=== PATIENT | female | born 2000 | race Caucasian/White ===

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

== ENCOUNTER 2021-02-06 20:59 | Emergency (ER) | payer OTHER, MEDICAID, SELFPAY ==
[2021-02-06 21:08] VITALS: BP 115/79; PULSE 88; RESP 16; TEMP 36.7; O2SAT 100
--- NOTE | 2021-02-06 21:15 | DI.CT_ITS ---
Exam(s) CT ABDOMEN PELVIS W EXAM: CT ABDOMEN PELVIS W CLINICAL HISTORY: right sided abodmen pain. TECHNIQUE: Imaging Protocol: Axial computed tomography images with coronal and sagittal reformatted images were created and reviewed CONTRAST MATERIAL: Intravenous: Omnipaque 350 Contrast volume:100 ml Oral: yes / no COMPARISON: No exams were available for comparison FINDINGS: ABDOMEN: Lung Bases: Normal where visualized. Liver: Normal density. No measurable mass. Gallbladder and biliary tract: No radiodense calculus or dilation. Pancreas: Normal density, no abnormal calcifications or inflammatory process. Spleen: Normal. Kidneys: Right kidney: Mild right hydronephrosis and enhancement of the urothelium. Patchy areas of decreased perfusion in the mid right kidney may represent foci of pyelonephritis. No perinephric col lection. No stones. Left kidney: Normal size, contour and axis. No radiodense stones or obstructive uropathy. No masses s een. Adrenal glands: No masses seen. Abdominal Aorta: Abdominal portion non-dilated. PELVIS: Bladder: No gross wall thickening. No calculi.No focal mass. Bowel: No obstruction or bowel wall thickening. Appendix normal. Peritoneal cavity: No ascites, collection or mesenteric inflammatory response. Bones: Within normal limits for age. Reproductive organs: Within normal limits. IUD. Lymph nodes: Unremarkable. Impression: Mild right hydronephrosis and urothelial enhancement. Patchy areas of decreased perfusion suspicious for pyelonephritis. RADIATION DOSE DELIVERED: 639.19mGy.cm Total DLP DATA REPOSITORY: All CT scans at this facility are submitted to the National Radiology Data Registry (NRDR) Dose Index Registry (DIR) with the [employer] (A[employer]). RADIATION OPTIMIZATION: All CT scans at this facility use at least one of these dose optimization te chniques: automated exposure control; mA and/or kV adjustment per patient size (includes targeted exa ms where dose is matched to clinical indication); or iterative reconstruction.
--- NOTE | 2021-02-06 21:25 | ED.GENADUL_ITS ---
Discharge Plan Disposition Patient Disposition: HOME Condition: Stable Discharge Details Clinical Impression: Abdominal pain, Pyelonephritis Primary Care Provider: Aram Matute ED Provider: Rodney Solorzano Home Meds and New Rx's Prescriptions: New cephalexin 500 mg tablet 500 mg PO QID Qty: 40 RF: 0 Continued Kyleena 17.5 mcg/24 hrs (5 yrs) 19.5 mg intrauterine device 1 device intrauterine ONCE RF: 0 escitalopram oxalate [Lexapro] 10 mg tablet 10 mg PO DAILY RF: 0 Discontinued fluconazole [Diflucan] 150 mg tablet 150 mg PO ONCE Qty: 2 RF: 0 amoxicillin-pot clavulanate [Augmentin] 875-125 mg tablet 1 tab PO Q12H Qty: 14 RF: 0 Discharge Instructions Instructions: Kidney Infection (ED) Additional Instructions: your cat scan showed a kidney infection otherwise no other emergent findings you can take 1000mg tylenol and 600mg ibuprofen every 6 hours for pain as needed follow up with your primary care provider within a week return to the emergency department if you feel more ill, have persistent vomit or severe uncontrolled pain Medical Decision Making 20 yo female who denies chronic medical problems comes in with chief complaint of 4 days of right sided oblique and upper abdomen pain that is new for her. She denies vomit but has had nausea. Denies fevers, chills. She has tenderness on exam with palpation to the right upper abdomen and also right oblique area, no left sided tenderness or lower abdomen tenderness. Given location of pain concern for pancreatitis vs cholecystitis less likely appendicitis given pain seems more in the upper abdomen. Will obtain ct as there is no u/s available now and also obtain labs including cmp and lipase. labs remarkable for likely uti otherwise unremarkable and ct confirms likely uti/pyelo. She remains stable. No drew's sign and no right lower abdomen pain. She is hemodynamically stable for outpatient management. 1gm IV ceftriaxone given and will continue oral cephalexin. Advised to f/u with pcp and return precautions given Differential Diagnosis Differential Diagnosis: cholecystitis, hepatitis, appendicitis Imaging Data Radiologic Study: Attestation: I personally reviewed and interpreted this imaging study as follows: Imaging: CT Scan Radiologist's impression: IMPRESSION: 1. Asymmetrically prominent visualization of the urothelium in the right renal pelvis and proximal ureter. Although nonspecific, an acute urinary tract infection could produce this appearance. Clinical correlation is recommended. Two small foci of diminished/absent cortical enhancement in the right kidney. Early or mild acute pyelonephritis is suspected. Mimicking hypoattenuating cortical lesions are not excluded. 2. Normal appendix. 3. Small amount of free fluid in the deep pelvis, nonspecific. Lab Data Lab results reviewed: Yes I reviewed the patient's lab results. HPI General Mode of arrival: ambulatory . Date/Time Provider Initiated Documentation: 02/06/21 21:03 . Limitations to Documentation: no limitations . Information obtained by: patient . History of Present Illness 20 year old F presents to the emergency department with the chief complaint of abdomen pain, described as moderate and severe, Quality is described as aching and sharp, Patient started experiencing this day(s) (4) and it has been constant. other things that improve symptom(s), (nsaids) No exacerbating factors reported . Patient notes other (nausea). Patient did receive the following treatments prior to arrival, NSAID (5 hours ago) Related Data Home Medications Medication Instructions Recorded Confirmed levonorgestrel 1 device INTRAUTERINE ONCE 05/31/20 05/31/20 escitalopram oxalate 10 mg tablet 10 mg PO DAILY 12/01/20 cephalexin 500 mg PO QID #40 tab 02/06/21 Previous Rx's Medication Instructions Recorded cephalexin 500 mg PO QID #40 tab 02/06/21 Allergies Allergy/AdvReac Type Severity Reaction Status Date / Time No Known Allergies Allergy Verified 02/06/21 21:11 General Stated Complaint: Abd Prob LELE: 3 Review of Systems All systems reviewed & are unremarkable except as noted in HPI and below Constitutional Constitutional: Denies chills, Denies fever(s) and Denies weakness Cardiovascular Cardiovascular: Denies chest pain and Denies dyspnea Respiratory Respiratory: Denies cough and Denies dyspnea Gastrointestinal Gastrointestinal: Denies vomiting Neurologic Neurologic: Denies weakness [facility] Medical History (Updated 02/06/21 @ 23:38 by Rodney Solorzano MD) Anxiety IUD surveillance (04/19/20) [facility] Social History (Updated 04/19/20 @ 12:49 by Alba Solorzano NP) Smoking/Tobacco Use Status: Never Smoking risk assessment performed?: Yes Alcohol Intake: never Drug use: Occasionally Substance use type: marijuana Sexually active: Yes Do you think of yourself as: straight/heterosexual Current gender identity: female Do you feel safe at home: Yes Do you feel safe in your relationship?: Yes Female Reproductive History Menstrual Duration of menses: 3-5 days control method: progestin IUCD (Kyleena) History History 0 Para Hx # Term Pregnancies Multiple births Hx # Pregnancies Ectopic pregnancies AB induced Hx Number of Living Children AB spontaneous Exam Const General: no acute distress Orientation: alert HENMT Head: normal to inspection Ears: external ears normal General nose exam: external nose normal Mouth: moist mucous membranes Eyes General: appearance normal, both eyes and all related structures Neck Neck: normal visual inspection Resp Effort & Inspection: normal respiratory effort and able to speak in complete sentences Cardio Rate: regular rate GI Palpation: soft and tender Skin General skin exam: no rashes or lesions noted Neuro General: patient alert and patient oriented x3 Extrem General: normal to inspection Psych Mental Status: mental status grossly normal Course Vital Signs Vital signs: Vital Signs Temperature 36.7 C 02/06/21 21:08 Pulse 88 02/06/21 21:08 Respiratory Rate 16 02/06/21 21:08 Blood Pressure 115/79 02/06/21 21:08 Pulse Oximetry 100 02/06/21 21:08 Temperature 36.7 C 02/06/21 21:08 Temperature Source Temporal Artery Scan 02/06/21 21:08 Pulse 88 02/06/21 21:08 Respiratory Rate 16 02/06/21 21:08 Respiratory Effort Non-Labored 02/06/21 21:10 Blood Pressure 115/79 02/06/21 21:08 Blood Pressure Position Sitting 02/06/21 21:08 Pulse Oximetry 100 02/06/21 21:08 Oxygen Delivery Method Room Air 02/06/21 21:08 Oxygen Flow Rate 0 02/06/21 21:08 Pain Level 8 02/06/21 21:24
[2021-02-06 21:40] LABS: Abs Immature Grans 0.02 10^3/uL (0.0-0.06); Absolute Basophil Count 0.02 10^3/uL (0.0-0.2); Absolute Eosinophil Count 0.01 10^3/uL (0.0-0.7); Absolute Lymphocyte Count 0.69 10^3/uL (1.2-3.4); Absolute Monocyte Count 0.57 10^3/uL (0.1-0.8); Absolute Neutrophil Count 6.53 10^3/uL (1.2-6.7); Basophils % 0.3; Eosinophils % 0.1; HCT 38.8 % (36.0-46.0); Immature Grans % 0.3; Lymphocytes % 8.8; MCH 31.9 pg (27.0-33.0); MCHC 33.5 % (32.0-36.0); MCV 95.3 fL (80-95); Monocytes % 7.3; Neutrophils % 83.2; Nucleated RBC 0 %; Platelet Count 183 10^3/uL (130-400); RBC 4.07 10^6/uL (3.93-5.22); RDW 11.2 % (11.7-14.6); RDW-SD 39.6 fL; WBC 7.84 10^3/uL (4.4-10.8)
[2021-02-06] MEDS: Normal Saline 1,000 ML 1000 ML IV (21:41)
[2021-02-06] MEDS: Ondansetron 4 MG/2 ML VIAL IVP (21:41)
[2021-02-06] MEDS: Ketorolac 15 MG/ML VIAL IVP (21:44)
[2021-02-06 21:59] LABS: ALT 18 U/L (14-59); AST 15 U/L (15-37); Albumin 4.3 g/dL (3.4-5.0); Alkaline Phosphatase 77 U/L (46-116); Anion Gap 10.2 mmol/L (3-11); BUN 12 mg/dL (7-18); Bilirubin, Direct 0.3 mg/dL (0.0-0.2); CO2 26.8 mmol/L (21.0-32.0); CREATININE 0.9 mg/dL (0.55-1.02); Calcium 9.1 mg/dL (8.5-10.1); Chloride 102 mmol/L (98-107); Glucose 106 mg/dL (74-106); Lipase 107 U/L (73-393); Potassium 3.6 mmol/L (3.5-5.1); Sodium 139 mmol/L (136-145)
[2021-02-06 22:19] LABS: Bilirubin Negative (Negative); Blood Moderate (Negative); Clarity Sl Cloudy (Clear); Glucose Negative (Negative); Ketones Negative (Negative); Leukocyte Esterase Moderate (Negative); Nitrite Positive (Negative); Specific Gravity 1.015 (1.005-1.025); Urobilinogen 0.2 EU/dL (Up TO 0.2); pH 5.5 (5-8)
[2021-02-06 22:25] LABS: WBC >50 HPF (0-5)
[2021-02-06 22:26] LABS: Bacteria Many HPF (Negative); C & S Indicated? Yes; Casts Negative LPF (Negative); Crystals Negative HPF (Negative); Epithelial Cells Few HPF (Negative); Mucus Negative (Negative)
[2021-02-06] MEDS: Omnipaque 350 MG/ML 100 ML BTL IJ (22:40)
[2021-02-06] MEDS: Normal Saline Flush 10 ML SYR IVP (22:46)
--- NOTE | 2021-02-06 23:22 | DI.VRAD_ITS ---
PROCEDURE INFORMATION: Exam: CT Abdomen And Pelvis With Contrast Exam date and time: 02/06/2021 9:25 PM Age: 20 years old Clinical indication: Abdominal pain; Localized; Patient HX: Right sided abd pain TECHNIQUE: Imaging protocol: Computed tomography of the abdomen and pelvis with contrast. Radiation optimization: All CT scans at this facility use at least one of these dose optimization techniques: automated exposure control; mA and/or kV adjustment per patient size (includes targeted exams where dose is matched to clinical indication); or iterative reconstruction. Contrast material: OMNIPAQUE 350; Contrast volume: 84 ml; Contrast route: INTRAVENOUS (IV); COMPARISON: US PELVIS TRANSVAGINAL 09/13/2020 7:24 AM FINDINGS: Limitations: Paucity of intra-abdominal fat. Lungs: Lung bases clear. Liver: Normal appearing liver. Gallbladder and bile ducts: Gallbladder partially collapsed. No calcified gallstones. No biliary dilatation. Pancreas: Normal appearing pancreas. Spleen: Normal appearing spleen. Adrenal glands: Adrenal glands partially obscured but grossly unremarkable, as seen. Kidneys and ureters: Mild proximal right-sided ureterectasis with asymmetrically prominent visualization of the urothelium in the renal pelvis and proximal ureter. Distal ureter obscured. Acute urinary tract infection? Clinical correlation recommended. Two small foci of hypoattenuation in the right renal cortex, nonspecific. Early acute pyelonephritis? Mimicking hypoattenuating cortical lesions? Normal-appearing left kidney. No left-sided hydronephrosis. No suspicious calcifications along the expected ureteral courses. Stomach and bowel: Stomach partially distended with fluid and ingested material. No small bowel dilatation to suggest obstruction. Moderate retained fecal material in the colon. No evidence of diverticulitis or colitis. Appendix: Normal appendix. Intraperitoneal space: Small amount of free fluid in the deep pelvis in the cul-de-sac of Venu, nonspecific. No free air. Vasculature: Normal caliber abdominal aorta. Lymph nodes: No pathologically enlarged mesenteric, retroperitoneal, or pelvic sidewall lymph nodes. Urinary bladder: Urinary bladder partially collapsed but grossly unremarkable, as seen. Reproductive: Anteverted uterus, normal in size. Ovaries partially obscured but normal in size. Bones/joints: No acute fracture seen among the bones of the abdomen or pelvis. Soft tissues: No significant ventral or inguinal hernia. IMPRESSION: 1. Asymmetrically prominent visualization of the urothelium in the right renal pelvis and proximal ureter. Although nonspecific, an acute urinary tract infection could produce this appearance. Clinical correlation is recommended. Two small foci of diminished/absent cortical enhancement in the right kidney. Early or mild acute pyelonephritis is suspected. Mimicking hypoattenuating cortical lesions are not excluded. 2. Normal appendix. 3. Small amount of free fluid in the deep pelvis, nonspecific. Dictated and Authenticated by: Alessandro Soliman MD. Ordering:TAMMI Stevens MD
[2021-02-06] MEDS: cefTRIAXone 1 GM/50 ML BAG IVPB (23:25)
[2021-02-06 23:56] VITALS: BP 115/79; PULSE 88; RESP 16; TEMP 36.7; O2SAT 100
== END 2021-02-06 23:55 | disposition home or self-care (01) ==
PROVIDERS: Emergency Provider Emergency Medicine; PCP Physician Assistant Medical
DX: N10 Acute pyelonephritis (principal); B96.20 Unspecified Escherichia coli [E. coli] as the cause of diseases classified elsewhere; R10.11 Right upper quadrant pain
CPT/HCPCS: 80053; 81025; 83690; 87077; 96361; 96365; 96375; 99285; 74177; 81003; 81015; 82248; 85025; 87086; 87186; 99284; J0696; J1885; J2405; J3490

== ENCOUNTER 2021-02-08 13:59 | Emergency (ER) | payer OTHER, SELFPAY ==
[2021-02-08 14:08] VITALS: BP 104/55; PULSE 69; RESP 16; TEMP 37; O2SAT 99
[2021-02-08] MEDS: Normal Saline 1,000 ML 1000 ML IV (14:50)
[2021-02-08 14:56] LABS: Lactate 0.7 mmol/L (0.6-1.4)
[2021-02-08 14:57] LABS: Abs Immature Grans 0.01 10^3/uL (0.0-0.06); Absolute Basophil Count 0.03 10^3/uL (0.0-0.2); Absolute Eosinophil Count 0.05 10^3/uL (0.0-0.7); Absolute Lymphocyte Count 1.01 10^3/uL (1.2-3.4); Absolute Monocyte Count 0.67 10^3/uL (0.1-0.8); Absolute Neutrophil Count 4.65 10^3/uL (1.2-6.7); Basophils % 0.5; Eosinophils % 0.8; HCT 33.1 % (36.0-46.0); HGB 11.1 g/dL (11.2-15.7); Immature Grans % 0.2; Lymphocytes % 15.7; MCH 31.8 pg (27.0-33.0); MCHC 33.5 % (32.0-36.0); MCV 94.8 fL (80-95); MPV 9.9 fL (8.0-11.0); Monocytes % 10.4; Neutrophils % 72.4; Nucleated RBC 0 %; Platelet Count 170 10^3/uL (130-400); RBC 3.49 10^6/uL (3.93-5.22); RDW 11.4 % (11.7-14.6); RDW-SD 39.6 fL; WBC 6.42 10^3/uL (4.4-10.8)
[2021-02-08 15:20] LABS: ALT 14 U/L (14-59); AST 9 U/L (15-37); Albumin 3.3 g/dL (3.4-5.0); Alkaline Phosphatase 59 U/L (46-116); Anion Gap 5.2 mmol/L (3-11); BUN 7 mg/dL (7-18); Bilirubin, Total 1.3 mg/dL (0.2-1.0); CO2 27.8 mmol/L (21.0-32.0); CREATININE 0.8 mg/dL (0.55-1.02); Calcium 8.1 mg/dL (8.5-10.1); Chloride 107 mmol/L (98-107); Glucose 80 mg/dL (74-106); Potassium 3.7 mmol/L (3.5-5.1); Sodium 140 mmol/L (136-145); Total Protein 6.7 g/dL (6.4-8.2)
--- NOTE | 2021-02-08 15:27 | W.ED.GENAD ---
Discharge Plan Disposition Patient Disposition: HOME Condition: Stable Discharge Details Clinical Impression: Abdominal pain, Pyelonephritis Primary Care Provider: Aram Matute ED Provider: Fide Parekh Home Meds and New Rx's Prescriptions: New ondansetron 4 mg tablet,disintegrating 4 mg PO Q6H PRN (Reason: nausea and vomiting) Qty: 10 RF: 0 omeprazole 20 mg capsule,delayed release(DR/EC) 20 mg PO DAILY Qty: 10 RF: 0 Continued Kyleena 17.5 mcg/24 hrs (5 yrs) 19.5 mg intrauterine device 1 device intrauterine ONCE RF: 0 escitalopram oxalate [Lexapro] 10 mg tablet 10 mg PO DAILY RF: 0 cephalexin 500 mg tablet 500 mg PO QID Qty: 40 RF: 0 Discharge Instructions Instructions: Urinary Tract Infection in Women (ED), Abdominal Pain (ED) Additional Instructions: Please continue to encourage hydration. I believe that your antibiotic is the appropriate choice but likely has not begun to have clinical effect yet. This is not a usual and often take 48 hours. Regard to your upper abdominal discomfort, this is improved with some Mylanta. I believe that this may be some acid reflux and might be worsening but with occasionally been taking. Please take the omeprazole as prescribed, this is taken 1 a day to help prevent upper abdominal discomfort. You may also take Zofran as prescribed if you develop any recurrence of your nausea or vomiting. Please call your primary care tomorrow to schedule appointment as soon as possible for reevaluation. If you develop fevers, increased pain, inability stay hydrated or other new/worsening symptom please seek care urgently once again. Referrals: Aram Matute PA [Primary Care Provider] - Discharge Data Discharge Date/Time-TO BE ENTERED AT DEPARTURE: 02/08/21 16:51 Medical Decision Making Patient is a pleasant 20-year-old female presenting today with chief complaint of increased abdominal discomfort associated with recent diagnosis pyelonephritis. Patient was seen here less than 48 hours ago at which time studies diagnosed with right-sided pyelonephritis. Patient was treated on cephalexin. CT was performed as her primary concern was abdominal discomfort. Imaging showed mild right hydronephrosis and ureteral enhancement consistent with pyelonephritis. Urinalysis was obtained, culture shows E. coli that is monroe sensitive. Patient states that she is received a roughly 1-1/2 days worth of the antibiotic. Despite this, continues to have right-sided abdominal pain as well as epigastric discomfort. States that she vomited x1 this morning. No fevers. She did have some chills last night. No previous abdominal surgery. On exam, patient appears nontoxic. Vital signs are stable. Lungs are clear, normal cardiac exam. Abdominal exam without any peritoneal findings. She does have some epigastric discomfort elicited with palpation. Seems to be the area of maximal pain. Discomfort elicited with compression of the right CVA. With her worsening symptoms, will obtain repeat labs. Her recent CT did not show obstructive pathology. Her CVA pain sounds to be improving. Primary concern is epigastric discomfort and N/V. The GI upset has not been associated with abx. She has been using NSAIDS and APAP for discomfort. Will administer IV hydration. Labs reviewed. No leukocytosis. Patient slightly anemic with a hemoglobin 11.1.. Lactate within normal limits. No abnormalities Discussed with patient, she reports being slightly improved. Continues with epigastric discomfort. She is not endorsing nausea but concerned this may be her diminished appetite and contribute to her epigastric discomfort. Will give zofran and GI cocktail. I evaluated the patient patient received GI cocktail and Zofran. She reports that she is feeling improved. Based on the findings and the labs as well as the microbiology report, and he feels the patient is on correct antibiotic and can be be seen back to home. She remains hemodynamically stable. I do not see any evidence to suggest septicemia at this time. I did encourage her to call her primary care tomorrow morning to see if she could be reevaluated soon as possible. Strict return precautions were discussed. All of her questions and concerns were addressed and she is in agreement with this plan. HPI General Mode of arrival: ambulatory. Date/Time Provider Initiated Documentation: 02/08/21 14:13. Limitations to Documentation: no limitations. Information obtained by: patient, RN notes reviewed and old records reviewed. History of Present Illness 20 year old F presents to the emergency department with the chief complaint of abdominal discomfort, described as moderate, with intensity rated at 6. Quality is described as burning and aching, and is localized to the abdomen. Patient reports no radiation. Patient started experiencing this day(s) and it has been constant. No relieving factors improve symptom(s), No exacerbating factors reported . Patient notes fever/chills (chills, no fever), loss of appetite and nausea/vomiting; denies chest pain, cough, headaches, rash, shortness of breath and weakness. Patient did receive the following treatments prior to arrival, other (abx) Related Data Home Medications Medication Instructions Recorded Confirmed levonorgestrel 1 device INTRAUTERINE ONCE 05/31/20 02/08/21 escitalopram oxalate 10 mg tablet 10 mg PO DAILY 12/01/20 02/08/21 cephalexin 500 mg PO QID #40 tab 02/06/21 02/08/21 omeprazole 20 mg PO DAILY #10 cap 02/08/21 ondansetron 4 mg PO Q6H PRN #10 tab 02/08/21 Previous Rx's Medication Instructions Recorded cephalexin 500 mg PO QID #40 tab 02/06/21 omeprazole 20 mg PO DAILY #10 cap 02/08/21 ondansetron 4 mg PO Q6H PRN #10 tab 02/08/21 Allergies Allergy/AdvReac Type Severity Reaction Status Date / Time No Known Allergies Allergy Verified 02/08/21 14:11 General Stated Complaint: Abd Prob LELE: 3 Review of Systems Constitutional Constitutional: Reports as per HPI, Reports chills, Reports fatigue, Denies fever(s) and Denies headache(s) ENT Ears, Nose, Mouth, and Throat: Denies headache(s) Cardiovascular Cardiovascular: Reports as per HPI, Denies chest pain and Denies dyspnea Respiratory Respiratory: Reports as per HPI, Denies cough and Denies dyspnea Gastrointestinal Gastrointestinal: Reports as per HPI Genitourinary Genitourinary: Reports as per HPI Musculoskeletal Musculoskeletal: Reports as per HPI and Reports back pain (had right CVA pain, today pain is in abdomen) Integumentary/Breasts Skin/Breast: Reports as per HPI and Denies rash Neurologic Neurologic: Reports as per HPI and Denies headache(s) Endocrine Endocrine: Reports fatigue [facility] Medical History (Updated 02/08/21 @ 16:39 by DELVIN Roberts) Anxiety IUD surveillance (04/19/20) Kyleena Social History Smoking/Tobacco Use Status: Never Smoking risk assessment performed?: Yes Alcohol Intake: never Drug use: Occasionally Substance use type: marijuana Sexually active: Yes Do you think of yourself as: straight/heterosexual Current gender identity: female Do you feel safe at home: Yes Do you feel safe in your relationship?: Yes Female Reproductive History Menstrual Duration of menses: 3-5 days control method: progestin IUCD (Kyleena) History History 0 Para Hx # Term Pregnancies Multiple births Hx # Pregnancies Ectopic pregnancies AB induced Hx Number of Living Children AB spontaneous Exam Const General: cooperative, healthy appearing, comfortable, no acute distress and well developed Nutritional Appearance: average body habitus and well nourished Orientation: alert and awake HENMT Head: normal to inspection Mouth: moist mucous membranes Resp Effort & Inspection: normal respiratory effort, able to speak in complete sentences and no respiratory distress Auscultation: clear to auscultation bilaterally, no rales, no rhonchi and no wheezes Cardio Rate: regular rate Rhythm: regular rhythm Heart Sounds: S1 normal and S2 normal GI Inspection: normal to inspection and non-distended Palpation: soft, no hepatosplenomegaly, not firm, no guarding, no hernias, not rigid and tender in the epigastrum Percussion: normal to percussion Auscultation: normal bowel sounds Back/Spine/Pelvis Back: CVA tenderness (right side) Skin General skin exam: no rashes or lesions noted Trauma: no lacerations or abrasions Neuro General: patient alert and patient awake Cognition: normal cognition Speech: speech normal Gait: normal gait Psych Appearance: grossly normal and well kempt Mental Status: mental status grossly normal Speech and Movement: speech and movement normal Course Vital Signs Vital signs: Vital Signs Temperature 37 C 02/08/21 14:08 Pulse 69 02/08/21 14:08 Respiratory Rate 16 02/08/21 14:08 Blood Pressure 104/55 L 02/08/21 14:08 Pulse Oximetry 99 02/08/21 14:08 Temperature 37 C 02/08/21 14:08 Temperature Source Skin 02/08/21 14:08 Pulse 69 02/08/21 14:08 Respiratory Rate 16 02/08/21 14:08 Respiratory Effort Non-Labored 02/08/21 14:08 Blood Pressure 104/55 L 02/08/21 14:08 Blood Pressure Position Sitting 02/08/21 14:08 Pulse Oximetry 99 02/08/21 14:08 Oxygen Delivery Method Room Air 02/08/21 14:08 Oxygen Flow Rate 0 02/08/21 14:08 Pain Level 6 02/08/21 14:08 Lab/Test Results Lab/Test Results: Laboratory Tests Range/Units 02/08/21 02/08/21 02/08/21 14:39 14:50 14:50 WBC (4.4-10.8) 10^3/uL 6.42 RBC (3.93-5.22) 10^6/uL 3.49 L Hgb (11.2-15.7) g/dL 11.1 L Hct (36.0-46.0) % 33.1 L MCV (80-95) fL 94.8 MCH (27.0-33.0) pg 31.8 MCHC (32.0-36.0) % 33.5 RDW (11.7-14.6) % 11.4 L Plt Count (130-400) 10^3/uL 170 MPV (8.0-11.0) fL 9.9 Immature Gran % 0.2 Neutrophils % 72.4 Lymphocytes % 15.7 Monocytes % 10.4 Eosinophils % 0.8 Basophils % 0.5 Nucleated RBC % % 0 Absolute Neutrophils (1.2-6.7) 10^3/uL 4.65 Absolute Lymphocytes (1.2-3.4) 10^3/uL 1.01 L Absolute Monocytes (0.1-0.8) 10^3/uL 0.67 Absolute Eosinophils (0.0-0.7) 10^3/uL 0.05 Absolute Basophils (0.0-0.2) 10^3/uL 0.03 VBG Lactate (0.6-1.4) mmol/L 0.7 Sodium (136-145) mmol/L 140 Potassium (3.5-5.1) mmol/L 3.7 Chloride (98-107) mmol/L 107 Carbon Dioxide (21.0-32.0) mmol/L 27.8 Anion Gap (3-11) mmol/L 5.2 BUN (7-18) mg/dL 7 Creatinine (0.55-1.02) mg/dL 0.8 Estimated GFR/1.73 m2 (mL/min/1.73m2) >= 60.00 Glucose (74-106) mg/dL 80 Calcium (8.5-10.1) mg/dL 8.1 L Total Bilirubin (0.2-1.0) mg/dL 1.3 H AST (15-37) U/L 9 L ALT (14-59) U/L 14 Alkaline Phosphatase (46-116) U/L 59 Total Protein (6.4-8.2) g/dL 6.7 Albumin (3.4-5.0) g/dL 3.3 L
[2021-02-08] MEDS: Ondansetron 4 MG/2 ML VIAL IVP (16:05)
[2021-02-08 16:36] VITALS: BP 100/55; PULSE 52; RESP 16; TEMP 37; O2SAT 99
== END 2021-02-08 16:51 | disposition home or self-care (01) ==
PROVIDERS: Emergency Provider Physician Assistant; PCP Physician Assistant Medical
DX: N10 Acute pyelonephritis (principal); R10.13 Epigastric pain; R11.2 Nausea with vomiting, unspecified
CPT/HCPCS: 36415; 80053; 96361; 96374; 99284; 83605; 85025; J2405

== ENCOUNTER 2021-08-02 17:47 | Outpatient (REF) | payer MEDICAID, SELFPAY | END 2021-08-02 17:48 | disposition home or self-care (01) | LOC: LBN 17:47 | PROVIDERS: PCP Physician Assistant Medical; Visit Provider Physician Assistant Medical | DX: J02.9 Acute pharyngitis, unspecified (principal) | CPT/HCPCS: 87070 ==

== ENCOUNTER 2022-02-25 18:19 | Outpatient (REF) | payer MEDICAID, SELFPAY ==
[2022-02-27 11:15] LABS: Hemoglobin S Screen Negative (Negative)
== END 2022-02-25 18:20 | disposition home or self-care (01) ==
LOC: LBN 18:19
PROVIDERS: PCP Physician Assistant Medical; Visit Provider Nurse Practitioner Family
DX: Z13.0 Encounter for screening for diseases of the blood and blood-forming organs and certain disorders involving the immune mechanism (principal)
CPT/HCPCS: 85660

== ENCOUNTER 2022-03-13 19:40 | Emergency (ER) | payer OTHER, SELFPAY ==
[2022-03-13 19:56] VITALS: BP 119/56; PULSE 57; RESP 16; TEMP 36.6; O2SAT 99
--- NOTE | 2022-03-13 20:15 | DI.RAD_ITS ---
Exam(s) XR FOOT RT COMPLETE EXAM: XR FOOT RT COMPLETE CLINICAL HISTORY: R/O Fracture, injury 2 days ago. TECHNIQUE: 2D digital imaging was performed of the right foot. Three images were obtained. AP, obl ique and lateral views were obtained. COMPARISON: No exams were available for comparison FINDINGS: BONES: No acute fracture is present. No bony destructive lesion is seen. JOINTS: No dislocation present. SOFT TISSUE: Normal. IMPRESSION: Unremarkable radiographs of the right foot. DATA REPOSITORY: RADIATION DOSE DELIVERED:
--- NOTE | 2022-03-13 20:21 | W.ED.GENAD ---
Discharge Plan Disposition Patient Disposition: HOME Condition: Stable Discharge Details Clinical Impression: Moderate right ankle sprain Primary Care Provider: Aram Matute ED Provider: Nelly Carlos Home Meds and New Rx's Prescriptions: No Action Kyleena 17.5 mcg/24 hrs (5 yrs) 19.5 mg intrauterine device 1 device intrauterine ONCE Rx Instructions: as a single dose Discharge Instructions Instructions: Ankle Sprain (ED) Additional Instructions: X-rays do not show any fractures or broken bones. I do suspect a moderate to severe ankle sprain. A ligament runs right along this area of your foot. It is not uncommon for bruising to occur and movement of the bruising. Rest, ice, compression, elevation. Keep it elevated above your heart and iced as much as possible. Please take Tylenol or Ibuprofen with food every 4-6 hours as needed for pain and swelling. If continued pain please follow-up with orthopedics in the next 1 to 2 weeks. Stand Alone Forms: School Release Referrals: Lucio Ho MD [ [facility] STAFF PHYSICIAN] - 2 weeks Discharge Data Discharge Date/Time-TO BE ENTERED AT DEPARTURE: 03/13/22 21:52 Medical Decision Making 21-year-old female presents to the ER with chief complaint of right foot pain and swelling status post a inversion type injury 2 days ago while playing volleyball. Patient has ecchymosis and contusions noted to the lateral and dorsal aspect of the right foot. X-ray of the foot ordered. See results below. Patient given a walking boot and presents with crutches. Discussed home care and elevation. Patient was given a note to abstain from activity. Verbalized understanding. This text was generated using [employer] system, please disregard any oddities of phrase or misspellings. Imaging Data Radiologic Study: Imaging: X-Ray Radiologist's impression: Imaging protocol: Radiologic exam of the Right foot. Views: 3 or more views. Total images: 3 COMPARISON: No relevant prior studies available. FINDINGS: Bones/joints: No significant bony or joint space abnormality. No fracture. No dislocation. Soft tissues: Unremarkable. IMPRESSION: No acute findings. Thank you for allowing us to participate in the care of your patient. Dictated and Authenticated by: Josemanuel Chatman MD [facility] Mode of arrival: ambulatory. Date/Time Provider Initiated Documentation: 03/13/22 19:59. Limitations to Documentation: no limitations. Information obtained by: patient, RN notes reviewed and old records reviewed. HPI Narrative: 21-year-old female presents to the ER with chief complaint of right foot pain and swelling status post a inversion type injury 2 days ago while playing volleyball. Patient has ecchymosis and contusions noted to the lateral and dorsal aspect of the right foot. She reports that she been using crutches and was given a boot by her safety counselor and has been taking it and icing it which she reports is increasing her pain. The majority of her pain is in the lateral foot area. No other injuries noted. Related Data Home Medications Medication Instructions Recorded Confirmed levonorgestrel 17.5 mcg/24 hrs 1 device intrauterine ONCE 05/31/20 03/13/22 (5yrs) 19.5mg intrauterine device (Kyleena) Allergies Allergy/AdvReac Type Severity Reaction Status Date / Time No Known Allergies Allergy Verified 02/08/21 14:11 General Stated Complaint: Orthopedic LELE: 3 Review of Systems All systems reviewed & are unremarkable except as noted in HPI and below Musculoskeletal Musculoskeletal: Reports as per HPI, Reports arthralgias and Reports joint swelling PFSH All Active Problems (Updated 03/13/22 @ 21:24 by Nelly Carlos NP) Abdominal pain (Acute) Pyelonephritis (Acute) Moderate right ankle sprain (Acute) IUD surveillance (Acute 04/19/20) Kyleena Anxiety (Chronic) Social History Smoking/Tobacco Use Status: Never Smoking risk assessment performed?: Yes Alcohol Intake: never Drug use: Occasionally Substance use type: marijuana Sexually active: Yes Do you think of yourself as: straight/heterosexual Current gender identity: female Do you feel safe at home: Yes Do you feel safe in your relationship?: Yes Female Reproductive History Menstrual Duration of menses: 3-5 days control method: progestin IUCD (Kyleena) History History 0 Para Hx # Term Pregnancies Multiple births Hx # Pregnancies Ectopic pregnancies AB induced Hx Number of Living Children AB spontaneous Exam Extrem Right lower extremity: ankle Details: normal to inspection and foot Details: normal capillary refill, abnormal to inspection Details: joint swelling and ecchymosis (Right lateral foot) dorsal lateral mid Ankle/foot/toe images: 1. Ecchymosis, swelling, tenderness Course Vital Signs Vital signs: Vital Signs Temperature 36.6 C 03/13/22 19:56 Pulse 57 L 03/13/22 19:56 Respiratory Rate 16 03/13/22 19:56 Blood Pressure 119/56 L 03/13/22 19:56 Pulse Oximetry 99 03/13/22 19:56 Temperature 36.6 C 03/13/22 19:56 Temperature Source Skin 03/13/22 19:56 Pulse 57 L 03/13/22 19:56 Respiratory Rate 16 03/13/22 19:56 Respiratory Effort 03/13/22 19:56 Blood Pressure 119/56 L 03/13/22 19:56 Blood Pressure Position Sitting 03/13/22 19:56 Pulse Oximetry 99 03/13/22 19:56 Oxygen Delivery Method Room Air 03/13/22 19:56 Oxygen Flow Rate 0 03/13/22 19:56 Pain Level 7 03/13/22 19:56
--- NOTE | 2022-03-13 21:12 | DI.VRAD_ITS ---
PROCEDURE INFORMATION: Exam: XR Right Foot Exam date and time: 03/13/2022 8:49 PM Age: 21 years old Clinical indication: Other: R/O fracture, injury 2 days ago TECHNIQUE: Imaging protocol: Radiologic exam of the Right foot. Views: 3 or more views. Total images: 3 COMPARISON: No relevant prior studies available. FINDINGS: Bones/joints: No significant bony or joint space abnormality. No fracture. No dislocation. Soft tissues: Unremarkable. IMPRESSION: No acute findings. Dictated and Authenticated by: Josemanuel Chatman MD. Ordering:DEBORAH Villegas MD
== END 2022-03-13 21:52 | disposition home or self-care (01) ==
PROVIDERS: Emergency Provider Registered Nurse Emergency; PCP Physician Assistant Medical
DX: S93.401A Sprain of unspecified ligament of right ankle, initial encounter (principal); S90.31XA Contusion of right foot, initial encounter; X58.XXXA Exposure to other specified factors, initial encounter; Y93.68 Activity, volleyball (beach) (court)
CPT/HCPCS: 99283; 73630; 99282

== ENCOUNTER 2022-10-17 03:35 | Outpatient (CLI) | payer OTHER, SELFPAY ==
[2022-10-18 09:27] LABS: HIV-1/2 Ag & Ab Screen Negative (Negative)
[2022-10-18 09:49] LABS: Hepatitis C Ab w Rflx HCV PCR Negative (Negative)
[2022-10-18 14:12] LABS: Chlamydia Result Negative (Negative); GC Result Negative (Negative)
[2022-10-20 14:43] LABS: Syphilis IgG w/Reflex Nonreactive (Nonreactive)
== END 2022-10-17 03:36 | disposition home or self-care (01) ==
LOC: LBO 03:36
PROVIDERS: PCP Physician Assistant Medical; Visit Provider Nurse Practitioner Women's Health
DX: Z11.3 Encounter for screening for infections with a predominantly sexual mode of transmission (principal); Z11.4 Encounter for screening for human immunodeficiency virus [HIV]; Z11.59 Encounter for screening for other viral diseases
CPT/HCPCS: 36415; 86803; 87389; 87491; 87591; 86780

== ENCOUNTER 2023-02-26 16:17 | Outpatient (REF) | payer OTHER, SELFPAY ==
--- NOTE | 2023-02-26 15:00 | PAPFT_PTH ---
PATIENT: Alley Roque LOC: [facility] U#:[id number] AGE/SX: 22/F ROOM: RE02/26/[address]: Alba Solorzano NP : 2000 BED: DIS: 02/26/2023 SPEC #: [id number] RECD: 02/26/23 18:28 STATUS: DESIREE RONQUILLO #: [id number] [facility]: 02/26/23 15:[address]: Alba Solorzano NP DEPT: [facility] Cytology RECD BY: Aminah Ayala ENTERED: 02/26/23 18:28 SP TYPE: PAPFT OTHR DR: Aram Matute Tissues: 1 - CX/ENDOCX FOR PAP SMEARS Procedures: PAP THIN PREP/[facility] Screening Comments: [id number] (CHLAMYDIA/GC)
[2023-02-27 15:04] LABS: Chlamydia Result Negative (Negative); GC Result Negative (Negative)
== END 2023-02-26 16:18 | disposition home or self-care (01) ==
LOC: LBN 16:17
PROVIDERS: PCP Physician Assistant Medical; Visit Provider Nurse Practitioner Women's Health
DX: N76.0 Acute vaginitis (principal); Z12.4 Encounter for screening for malignant neoplasm of cervix; B96.89 Other specified bacterial agents as the cause of diseases classified elsewhere
CPT/HCPCS: 87491; 87591; 88142; 87480; 87510; 87660

== ENCOUNTER 2023-11-06 10:12 | Outpatient (REF) | payer OTHER, SELFPAY | END 2023-11-06 10:13 | disposition home or self-care (01) | LOC: LBN 10:12 | PROVIDERS: PCP Nurse Practitioner Family; Visit Provider Physician Assistant | DX: N39.0 Urinary tract infection, site not specified (principal); B96.29 Other Escherichia coli [E. coli] as the cause of diseases classified elsewhere | CPT/HCPCS: 87077; 87086; 87186 ==

== ENCOUNTER 2023-11-06 13:32 | Outpatient (CLI) | payer OTHER, SELFPAY ==
[2023-11-06 12:06] LABS: Abs Immature Grans 0.03 10^3/uL (0.0-0.06); Absolute Basophil Count 0.03 10^3/uL (0.0-0.2); Absolute Eosinophil Count 0.01 10^3/uL (0.0-0.7); Absolute Lymphocyte Count 1.27 10^3/uL (1.2-3.4); Absolute Monocyte Count 0.84 10^3/uL (0.1-0.8); Absolute Neutrophil Count 4.81 10^3/uL (1.2-6.7); Basophils % 0.4 %; Eosinophils % 0.1 %; HCT 36.7 % (36.0-46.0); HGB 12.2 g/dL (11.2-15.7); Immature Grans % 0.4 %; Lymphocytes % 18.2 %; MCH 32.2 pg (27.0-33.0); MCHC 33.2 % (32.0-36.0); MCV 97 fL (80-95); Neutrophils % 68.9 %; Platelet Count 196 10^3/uL (130-400); RBC 3.79 10^6/uL (3.93-5.22); RDW 11.3 % (11.7-14.6); RDW-SD 40.7 fL; WBC 6.99 10^3/uL (4.4-10.8)
[2023-11-06 12:48] LABS: ALT 18 U/L (14-59); AST 16 U/L (15-37); Albumin 3.5 g/dL (3.4-5.0); Alkaline Phosphatase 69 U/L (46-116); Anion Gap 9.8 mmol/L (3-11); BUN 7 mg/dL (7-18); Bilirubin, Total 1.4 mg/dL (0.2-1.0); CO2 27.2 mmol/L (21.0-32.0); CREATININE 0.9 mg/dL (0.55-1.02); Calcium 8.5 mg/dL (8.5-10.1); Chloride 100 mmol/L (98-107); Estimated GFR 93.28 (mL/min/1.73m2); Glucose 88 mg/dL (74-106); Lipase 36 U/L (16-77); Potassium 4.2 mmol/L (3.5-5.1); Sodium 137 mmol/L (136-145); Total Protein 7.9 g/dL (6.4-8.2)
== END 2023-11-06 13:33 | disposition home or self-care (01) ==
LOC: LBO 13:33
PROVIDERS: Physician Assistant; PCP Nurse Practitioner Family; Visit Provider Nurse Practitioner Family
DX: R10.9 Unspecified abdominal pain (principal)
CPT/HCPCS: 36415; 80053; 83690; 85025

== ENCOUNTER 2023-11-21 08:17 | Outpatient (REF) | payer OTHER, SELFPAY | END 2023-11-21 08:18 | disposition home or self-care (01) | LOC: LBN 08:17 | PROVIDERS: PCP Nurse Practitioner Family; Visit Provider Nurse Practitioner Family | DX: R30.0 Dysuria (principal); B95.7 Other staphylococcus as the cause of diseases classified elsewhere | CPT/HCPCS: 87077; 87086; 87186; 87480; 87510; 87660 ==

== ENCOUNTER 2024-01-15 20:02 | Emergency (ER) | payer OTHER, SELFPAY ==
--- NOTE | 2024-01-15 20:00 | DI.RAD_ITS ---
Exam(s) XR HIP RT COMPLETE AP PELVIS EXAM: XR HIP RT COMPLETE AP PELVIS CLINICAL HISTORY: pain s/p fall. TECHNIQUE: 2D digital imaging was performed. COMPARISON: No exams were available for comparison FINDINGS: Two views No evidence of pelvic nor hip fracture. Bone density normal. No hip joint space narrowing. No avas cular necrosis evident and no hip dysplasia. SI joints unremarkable. IUD noted in the pelvis. IMPRESSION: No acute osseous findings. DATA REPOSITORY: RADIATION DOSE DELIVERED:
--- NOTE | 2024-01-15 20:00 | DI.RAD_ITS ---
Exam(s) XR WRIST LT COMPLETE EXAM: XR WRIST LT COMPLETE CLINICAL HISTORY: pain s/p fall. TECHNIQUE: 2D digital imaging was performed. COMPARISON: No exams were available for comparison FINDINGS: 3 views There is a mildly displaced oblique fracture in the distal half of the radius. There is also fractur e of the tip of the ulnar styloid with some displacement. There is also diastasis of this distal rad ioulnar syndesmosis. Scaphoid and scapholunate distance normal. No carpal dislocation. No osseous lesions. No radiopaque foreign bodies. Bone density normal. IMPRESSION: Fractures of the distal half of the radius and also of the ulnar styloid. There is diastasis of the distal radioulnar syndesmosis. DATA REPOSITORY: RADIATION DOSE DELIVERED:
--- NOTE | 2024-01-15 20:00 | DI.CT_ITS ---
Exam(s) CT HEAD WO EXAM: CT HEAD WO CLINICAL HISTORY: fall, altered mental status. TECHNIQUE: Imaging Protocol: Axial computed tomography images with coronal and sagittal reformatted images were created and reviewed COMPARISON: No exams were available for comparison FINDINGS: There is some motion artifact on the images. There are no obvious skull fractures. There is no fluid in the visualized paranasal sinuses. There is no evidence of intracranial hemorrhage, mass effect, or shift of midline structures. There are no extra-axial fluid collections. The ventricles are not enlarged or shifted and there is no blo od within the ventricular system nor within the basal cisterns. IMPRESSION: No acute intracranial findings on this noninfused CT scan of the brain. RADIATION DOSE DELIVERED: Total DLP DATA REPOSITORY: All CT scans at this facility are submitted to the National Radiology Data Registry (NRDR) Dose Index Registry (DIR) with the [employer] (ACR). RADIATION OPTIMIZATION: All CT scans at this facility use at least one of these dose optimization te chniques: automated exposure control; mA and/or kV adjustment per patient size (includes targeted exa ms where dose is matched to clinical indication); or iterative reconstruction.
--- NOTE | 2024-01-15 20:00 | DI.RAD_ITS ---
Exam(s) XR FOREARM LT EXAM: XR FOREARM LT CLINICAL HISTORY: pain s/p fall. TECHNIQUE: 2D digital imaging was performed. COMPARISON: No exams were available for comparison FINDINGS: Two views. There is a mildly displaced oblique fracture in the distal 3rd of the radius with mild diastasis. No other fractures identified forearm bones. Possible diastasis of the distal radioulnar syndesmosis. IMPRESSION: Oblique fracture in the distal 3rd of the radius. Possible diastasis of the distal radioulnar syndes mosis DATA REPOSITORY: RADIATION DOSE DELIVERED:
[2024-01-15 20:04] VITALS: PULSE 63; TEMP 36.2; O2SAT 100
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
[2024-01-15 20:16] VITALS: BP 120/71; PULSE 74
[2024-01-15] MEDS: Normal Saline 1,000 ML 1000 ML IV (20:19)
[2024-01-15] MEDS: Ketorolac 15 MG/ML VIAL IVP (20:19)
[2024-01-15 20:51] VITALS: O2SAT 100
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
[2024-01-15] MEDS: Acetaminophen 500 MG TAB 1000 MG PO (21:39)
--- NOTE | 2024-01-15 21:41 | DI.VRAD_ITS ---
PROCEDURE INFORMATION: Exam: XR Left Forearm Exam date and time: 01/15/2024 8:46 PM Age: 23 years old Clinical indication: Injury or trauma; Fall; Fracture, traumatic injury; Closed fracture; Radius; Left; Additional info: Fall, altered mental status TECHNIQUE: Imaging protocol: Radiologic exam of the left forearm. Views: 2 views. COMPARISON: No relevant prior studies available. FINDINGS: Bones/joints: Oblique fracture through the distal radial diaphysis with minimal diastasis and a lateral cortical step-off. There is anatomic alignment at the elbow. The distal radius maintains anatomic alignment with the carpal bones. Suspected diastasis of the distal radioulnar syndesmosis. Soft tissues: Mild soft tissue swelling. No radiopaque foreign bodies. IMPRESSION: 1. Oblique fracture through the distal radial diaphysis. 2. Suspected diastasis of the distal radioulnar syndesmosis. Dictated and Authenticated by: Denny Khan MD. Ordering:TAMMI Stevens MD
--- NOTE | 2024-01-15 21:43 | DI.VRAD_ITS ---
PROCEDURE INFORMATION: Exam: XR Right Hip Exam date and time: 01/15/2024 8:41 PM Age: 23 years old Clinical indication: Injury or trauma; Fall; Blunt trauma (contusions or hematomas); Right; Hip; Additional info: Fall, altered mental status TECHNIQUE: Imaging protocol: Radiologic exam of the right hip. Views: 2 or 3 views hip with pelvis when performed. COMPARISON: CT ABDOMEN PELVIS W 04/06/2021 22:44 FINDINGS: Bones/joints: The joints maintain anatomic alignment. There is no acute fracture. Soft tissues: No unexpected radiopaque foreign bodies. Organs: A T-shaped intrauterine device is seen in the pelvis to the left of the midline. IMPRESSION: No evidence of acute fracture or dislocation. Dictated and Authenticated by: Denny Khan MD. Ordering:TAMMI Stevens MD
--- NOTE | 2024-01-15 21:51 | DI.VRAD_ITS ---
PROCEDURE INFORMATION: Exam: XR Left Wrist Exam date and time: 01/15/2024 8:47 PM Age: 23 years old Clinical indication: Injury or trauma; Fall; Fracture, traumatic injury; Closed fracture; Radius; Left; Additional info: Fall, altered mental status TECHNIQUE: Imaging protocol: Radiologic exam of the left wrist. Views: 3 or more views. COMPARISON: CR XR FOREARM LT 15/01/2024 20:46 FINDINGS: Bones/joints: Comminuted oblique fracture through the distal radial diaphysis with minimal lateral diastasis of the major distal fragment. Avulsion fracture of the ulnar styloid. The joints maintain anatomic alignment. Dorsal diastasis of the ulna at the distal radioulnar syndesmosis. Soft tissues: Mild soft tissue swelling. No radiopaque foreign bodies. IMPRESSION: 1. Comminuted oblique fracture through the distal radial diaphysis with minimal lateral diastasis of the major distal fragment. 2. Avulsion fracture of the ulnar styloid. 3. Dorsal diastasis of the ulna at the distal radioulnar syndesmosis. Dictated and Authenticated by: Denny Khan MD. Ordering:TAMMI Stevens MD
== END 2024-01-15 22:10 | disposition home or self-care (01) ==
PROVIDERS: Emergency Provider Emergency Medicine; PCP Nurse Practitioner Family
DX: S52.592A Other fractures of lower end of left radius, initial encounter for closed fracture (principal); S52.612A Displaced fracture of left ulna styloid process, initial encounter for closed fracture; S06.0X0A Concussion without loss of consciousness, initial encounter; S70.01XA Contusion of right hip, initial encounter; V18.4XXA Pedal cycle driver injured in noncollision transport accident in traffic accident, initial encounter; Y92.482 Bike path as the place of occurrence of the external cause; Y93.55 Activity, bike riding
CPT/HCPCS: 96374; 99284; 70450; 73090; 73110; 73502; J1885